=== PATIENT | female | born 1970 | race American Indian/Alaskan Native ===

== ENCOUNTER 2020-01-16 03:31 | Observation (INO) | payer OTHER ==
[2020-01-16 04:19] LABS: Mean Corpuscular HGB Conc 28 % (30-34); Red Blood Count 3.88 M/mm3 (3.65-5.03)
[2020-01-16 04:35] LABS: Hematocrit 20.6 % (30.3-42.9); Mean Corpuscular Volume 53 fl (79-97); Platelet Count 168 K/mm3 (140-440)
[2020-01-16 04:36] LABS: Hemoglobin 5.7 gm/dl (10.1-14.3)
[2020-01-16 04:40] LABS: Alanine Aminotransferase 19 units/L (7-56); Albumin 3.8 g/dL (3.9-5); BUN/Creatinine Ratio 12; Blood Urea Nitrogen 6 mg/dL (7-17); Calcium 8.5 mg/dL (8.4-10.2); Hemolysis Index 4
[2020-01-16] MEDS ORDERED: SODIUM CHLORIDE 0.9% 500 ML 500 ML IV ONE ×2 (04:54→14:06)
--- NOTE | 2020-01-16 04:54 | Event Note ---
ED Screening Note ED Screening Note: Chief complaint: "I guess my blood count is low." This is a 50-year-old female with previous history of anemia requiring 4 separate transfusions due to heavy menstruation. She presents with headache body aches. Hemoglobin 5. Medical screening exam performed and completed. Awaiting definitive treatment by my oncoming colleague. This initial assessment/diagnostic orders/clinical plan/treatment(s) is/are subject to change based on patients health status, clinical progression and re- assessment by fellow clinical providers in the ED. Further treatment and workup at subsequent clinical providers discretion. Patient/guardian urged not to elope from the ED as their condition may be serious if not clinically assessed and managed. Initial orders include: Type and cross 1 unit packed red blood cells.
--- NOTE | 2020-01-16 06:49 | Emergency Department Report ---
ED General Adult HPI - General Chief complaint: Headache Stated complaint: HEADACHE/BODY PAIN Time Seen by Provider: 01/16/20 06:11 Source: patient Mode of arrival: Ambulatory Limitations: No Limitations - History of Present Illness Initial comments: 50-year-old lady who has been previously transfused in 2016. She indicates that it was thought that her anemia was due to fibroids. However she is extremely poor historian. 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 She states that her periods recently have been "light" and not recent. He has had similar symptoms before with anemia. They include occasional headaches not currently present, dyspnea on exertion and generalized weakness. She has had this recently. They have been gradually progressive other than the headache which is not currently present. Patient has had no signs of active bleeding. She states that she has never had a colonoscopy. -: Gradual Location: head Radiation: non-radiation Quality: aching Consistency: now resolved Improves with: none Worsens with: none Associated Symptoms: shortness of breath (On exertion), weakness Treatments Prior to Arrival: none - Related Data Allergies Allergy/AdvReac Type Severity Reaction Status Date / Time No Known Allergies Allergy Verified 01/16/20 03:39 ED Review of Systems ROS: Stated complaint: HEADACHE/BODY PAIN Other details as noted in HPI Constitutional: weakness. denies: chills, fever Eyes: denies: eye pain, vision change ENT: denies: ear pain, throat pain Respiratory: SOB with exertion. denies: cough, shortness of breath (Not at rest), wheezing Cardiovascular: denies: chest pain, palpitations Endocrine: no symptoms reported Gastrointestinal: denies: abdominal pain, nausea, diarrhea Genitourinary: denies: urgency, dysuria, discharge Musculoskeletal: denies: back pain, arthralgia Skin: denies: rash, lesions Neurological: headache (Intermittently). denies: weakness, paresthesias Psychiatric: denies: anxiety, depression Hematological/Lymphatic: denies: easy bleeding, easy bruising ED Past Medical Hx - Past Medical History Previous Medical History?: Yes Additional medical history: anemia - Surgical History Past Surgical History?: Yes Hx Appendectomy: Yes - Social History Smoking Status: Never Smoker Substance Use Type: None ED Physical Exam - General Limitations: No Limitations General appearance: alert, in no apparent distress, obese - Head Head exam: Present: atraumatic, normocephalic - Eye Eye exam: Present: normal appearance, PERRL, EOMI, other (Pale conjunctiva). Absent: scleral icterus - ENT ENT exam: Present: mucous membranes moist - Neck Neck exam: Present: normal inspection. Absent: tenderness, meningismus - Respiratory Respiratory exam: Present: normal lung sounds bilaterally. Absent: respiratory distress - Cardiovascular Cardiovascular Exam: Present: regular rate, normal rhythm. Absent: systolic murmur, diastolic murmur, rubs, gallop - GI/Abdominal GI/Abdominal exam: Present: soft, normal bowel sounds. Absent: distended, tenderness, guarding, rebound - Extremities Exam Extremities exam: Present: normal inspection, other (Pale med bed) - Back Exam Back exam: Present: normal inspection - Neurological Exam Neurological exam: Present: alert, oriented X3, CN II-XII intact. Absent: motor sensory deficit - Psychiatric Psychiatric exam: Present: normal affect, normal mood - Skin Skin exam: Present: warm, dry, intact, normal color. Absent: rash ED Course Vital Signs 01/16/20 01/16/20 01/16/20 03:35 04:57 05:12 Temperature 99.2 F Pulse Rate 86 78 Respiratory 16 14 20 Rate Blood Pressure 136/65 Blood Pressure 136/58 [Left] O2 Sat by Pulse 99 99 99 Oximetry 01/16/20 01/16/20 07:57 08:15 Temperature 100.8 F H Pulse Rate 93 H 70 Respiratory 16 Rate Blood Pressure 133/64 Blood Pressure 142/74 [Left] O2 Sat by Pulse 99 Oximetry ED Medical Decision Making - Lab Data Result diagrams: 01/16/20 03:57 01/16/20 03:57 Laboratory Results - last 24 hr 01/16/20 01/16/20 01/16/20 03:57 03:57 05:10 WBC 2.7 L RBC 3.88 Hgb 5.7 L* Hct 20.6 L MCV 53 L MCH 15 L MCHC 28 L RDW 27.0 H Plt Count 168 Percent Retic PT INR APTT Sodium 135 L Potassium 4.0 Chloride 101.2 Carbon Dioxide 22 Anion Gap 16 BUN 6 L Creatinine 0.5 L Estimated GFR > 60 BUN/Creatinine Ratio 12 Glucose 103 H Calcium 8.5 Iron TIBC Total Bilirubin 0.40 AST 27 ALT 19 Alkaline Phosphatase 65 Troponin T NT-Pro-B Natriuret Pep Total Protein 7.6 Albumin 3.8 L Albumin/Globulin Ratio 1.0 Vitamin B12 Folate Blood Type O POSITIVE Antibody Screen Negative Crossmatch See Detail 01/16/20 01/16/20 01/16/20 06:45 06:45 06:45 WBC RBC Hgb Hct MCV MCH MCHC RDW Plt Count Percent Retic 1.45 PT INR APTT Sodium Potassium Chloride Carbon Dioxide Anion Gap BUN Creatinine Estimated GFR BUN/Creatinine Ratio Glucose Calcium Iron 12 L TIBC 367 Total Bilirubin AST ALT Alkaline Phosphatase Troponin T NT-Pro-B Natriuret Pep Total Protein Albumin Albumin/Globulin Ratio Vitamin B12 734.9 Folate Blood Type Antibody Screen Crossmatch 01/16/20 01/16/20 01/16/20 06:45 06:45 06:45 WBC RBC Hgb Hct MCV MCH MCHC RDW Plt Count Percent Retic PT 15.0 H INR 1.16 H APTT 37.2 H Sodium Potassium Chloride Carbon Dioxide Anion Gap BUN Creatinine Estimated GFR BUN/Creatinine Ratio Glucose Calcium Iron TIBC Total Bilirubin AST ALT Alkaline Phosphatase Troponin T < 0.010 NT-Pro-B Natriuret Pep 44.88 Total Protein Albumin Albumin/Globulin Ratio Vitamin B12 Folate > 20 Blood Type Antibody Screen Crossmatch - EKG Data -: EKG Interpreted by Ut EKG shows normal: sinus rhythm, axis (Left), intervals, QRS complexes, ST-T waves Rate: normal - EKG Data Interpretation: no acute changes - Radiology Data Radiology results: report reviewed, image reviewed Moderate cardiomegaly Critical care attestation.: If time is entered above; I have spent that time in minutes in the direct care of this critically ill patient, excluding procedure time. ED Disposition Clinical Impression: Symptomatic anemia, Folate deficiency, Iron deficiency, Cardiomegaly Disposition: OP ADMIT IP TO THIS HOSP Is pt being admited?: Yes Does the pt Need Aspirin: Yes Condition: Stable Referrals: PRIMARY CARE, [Primary Care Provider] - 3-5 Days Time of Disposition: 08:35
--- NOTE | 2020-01-16 07:05 | XRay Report ---
CHEST 1 VIEW INDICATION / CLINICAL INFORMATION: NAVDEEP. Dyspnea COMPARISON: None available. FINDINGS: SUPPORT DEVICES: None. HEART / MEDIASTINUM: Mild cardiomegaly. LUNGS / PLEURA: No significant pulmonary or pleural abnormality. No pneumothorax. ADDITIONAL FINDINGS: No significant additional findings. IMPRESSION: Moderate cardiomegaly. Signer Name: Guille Dodge MD Signed: 01/16/2020 7:01 AM Workstation Name: [id number]
[2020-01-16] MEDS ORDERED: ACETAMINOPHEN 500 MG TAB PO ONE (07:30)
[2020-01-16] MEDS ORDERED: SODIUM CHLORIDE 0.9% 500 ML 500 ML ONE ×2 (07:35→17:36)
[2020-01-16 07:38] LABS: Iron 12 ug/dL (37-170); Total Iron Binding Capacity 367 mcg/dL (250-450)
[2020-01-16 07:44] LABS: INR 1.16 (0.87-1.13)
[2020-01-16 07:45] LABS: Partial Thromboplastin Time 37.2 Sec. (24.2-36.6)
[2020-01-16 08:26] LABS: Mean Corpuscular HGB Conc 28 % (30-34); Red Blood Count 3.47 M/mm3 (3.65-5.03)
[2020-01-16 08:33] LABS: Hematocrit 18.7 % (30.3-42.9); Hemoglobin 5.3 gm/dl (10.1-14.3); Mean Corpuscular Volume 54 fl (79-97); Red Cell Distribution Width 25.3 % (13.2-15.2)
[2020-01-16 08:36] LABS: Bilirubin,Urine NEG (Negative); Blood,Urine NEG (Negative); Color,Urine Yellow (Yellow); HCG Qualitative,Urine Negative (Negative); Mucus,Urine FEW /HPF; Protein,Urine <15 mg/dL mg/dL (Negative); Urobilinogen,Urine < 2.0 mg/dL (<2.0); WBC,Urine < 1.0 /HPF (0.0-6.0)
--- NOTE | 2020-01-16 08:36 | History and Physical Report ---
History of Present Illness Date of examination: 01/16/20 Chief complaint: generalized weakness History of present illness: 50-year-old lady who has been previously transfused in 2016. She indicates that it was thought that her anemia was due to fibroids. However she is extremely poor historian. 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 She states that her periods recently have been "light" and not recent. He has had similar symptoms before with anemia. They include occasional headaches not currently present, dyspnea on exertion and generalized weakness. She has had this recently. They have been gradually progressive other than the headache which is not currently present. Patient has had no signs of active bleeding. She states that she has never had a colonoscopy. Medications and Allergies Allergies Allergy/AdvReac Type Severity Reaction Status Date / Time No Known Allergies Allergy Verified 01/16/20 03:39 Exam - Constitutional Vitals: Temp Pulse Resp BP Pulse Ox 99.5 F 70 20 139/64 99 01/16/20 08:30 01/16/20 08:30 01/16/20 08:30 01/16/20 08:30 01/16/20 08:30 HEART Score - HEART Score Troponin: Troponin T < 0.010 ng/mL (0.00-0.029) 01/16/20 06:45 Results - Labs CBC & Chem 7: 01/16/20 22:52 01/16/20 03:57 Labs: Abnormal lab results 01/16/20 01/16/20 01/16/20 Range/Units 03:57 03:57 05:10 WBC 2.7 L (4.5-11.0) K/mm3 RBC (3.65-5.03) M/mm3 Hgb 5.7 L* (10.1-14.3) gm/dl Hct 20.6 L (30.3-42.9) % MCV 53 L (79-97) fl MCH 15 L (28-32) pg MCHC 28 L (30-34) % RDW 27.0 H (13.2-15.2) % PT (12.2-14.9) Sec. INR (0.87-1.13) APTT (24.2-36.6) Sec. Sodium 135 L (137-145) mmol/L BUN 6 L (7-17) mg/dL Creatinine 0.5 L (0.7-1.2) mg/dL Glucose 103 H (65-100) mg/dL Iron (37-170) ug/dL Albumin 3.8 L (3.9-5) g/dL Crossmatch See Detail 01/16/20 01/16/20 01/16/20 Range/Units 06:15 06:45 06:45 WBC 2.6 L (4.5-11.0) K/mm3 RBC 3.47 L (3.65-5.03) M/mm3 Hgb 5.3 L* (10.1-14.3) gm/dl Hct 18.7 L* (30.3-42.9) % MCV 54 L (79-97) fl MCH 15 L (28-32) pg MCHC 28 L (30-34) % RDW 25.3 H (13.2-15.2) % PT 15.0 H (12.2-14.9) Sec. INR 1.16 H (0.87-1.13) APTT 37.2 H (24.2-36.6) Sec. Sodium (137-145) mmol/L BUN (7-17) mg/dL Creatinine (0.7-1.2) mg/dL Glucose (65-100) mg/dL Iron 12 L (37-170) ug/dL Albumin (3.9-5) g/dL Crossmatch Assessment and Plan Severe anemia - hb 5.3 Menorrhagia Fibroid uterus Obesity
[2020-01-16 11:58] LABS: Band Neutrophils # (Manual) 0.1 K/mm3; Eosinophils % (Manual) 0 % (0.0-4.3); Total Cells Counted 100
[2020-01-16 11:59] LABS: Anisocytosis 1+; Hypochromasia 3+
[2020-01-16 12:00] LABS: Platelet Estimate Consistent w Auto
[2020-01-16 12:01] LABS: Platelet Count 152 K/mm3 (140-440)
[2020-01-16] MEDS ORDERED: MORPHINE 2 MG/1 ML INJ ONE (15:12)
[2020-01-16] MEDS ORDERED: SODIUM CHLORIDE 0.9% 1000 ML 1,000 ML ONE (15:12)
[2020-01-16] MEDS ORDERED: PANTOPRAZOLE 20 MG TAB PO ONE (15:13)
[2020-01-16] MEDS ORDERED: ASPIRIN 81 MG TAB CHEW ONE (15:13)
[2020-01-16] MEDS: ASPIRIN 81 MG TAB CHEW PO ONE ×2 (15:15→15:16)
[2020-01-16] MEDS: SODIUM CHLORIDE 0.9% 1000 ML 1,000 ML IV SCH ×2 (15:15→23:49)
[2020-01-16] MEDS: MORPHINE 2 MG/1 ML INJ IV PRN ×2 (15:16→21:20)
[2020-01-16 15:32] LABS: Hematocrit 25.2 % (30.3-42.9)
[2020-01-16] MEDS ORDERED: ACETAMINOPHEN 325 MG TAB PO PRN (23:13)
[2020-01-16 23:39] LABS: Hematocrit 24.6 % (30.3-42.9); Hemoglobin 7.1 gm/dl (10.1-14.3)
[2020-01-16] MEDS: PANTOPRAZOLE 40 MG TAB PO SCH (23:50)
[2020-01-17] MEDS: SODIUM CHLORIDE 0.9% 1000 ML 1,000 ML IV SCH (09:55)
[2020-01-17] MEDS: PANTOPRAZOLE 40 MG TAB PO SCH (09:56)
[2020-01-17] MEDS: MORPHINE 2 MG/1 ML INJ IV PRN (09:56)
--- NOTE | 2020-01-17 13:02 | Discharge Summary ---
Providers - Providers Date of Admission: 01/16/20 08:32 Date of discharge: 01/17/20 Attending physician: UYEN LADD Primary care physician: RAJI BAIG MD Hospitalization Condition: Stable Disposition: DC-01 TO HOME OR SELFCARE Time spent for discharge: 34 minutes Core Measure Documentation - Palliative Care Palliative Care/ Comfort Measures: Not Applicable - Core Measures Any of the following diagnoses?: none Exam - Constitutional Vitals: Temp Pulse Resp BP Pulse Ox 99.8 F H 62 18 125/68 98 01/17/20 08:44 01/17/20 08:44 01/17/20 08:44 01/17/20 08:44 01/17/20 08:44 General appearance: Present: no acute distress, well-nourished - EENT Eyes: Present: PERRL ENT: hearing intact, clear oral mucosa - Neck Neck: Present: supple, normal ROM - Respiratory Respiratory effort: normal Respiratory: bilateral: CTA - Cardiovascular Heart Sounds: Present: S1 & S2. Absent: rub, click - Extremities Extremities: pulses symmetrical, No edema Peripheral Pulses: within normal limits - Abdominal General gastrointestinal: Present: soft, non-tender, non-distended, normal bowel sounds - Integumentary Integumentary: Present: clear, warm, dry - Musculoskeletal Musculoskeletal: gait normal, strength equal bilaterally - Psychiatric Psychiatric: appropriate mood/affect, intact judgment & insight - Neurologic Neurologic: CNII-XII intact, moves all extremities Plan Activity: advance as tolerated Weight Bearing Status: Weight Bear as Tolerated Diet: low fat, low salt Additional Instructions: 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
[2020-01-17 13:39] VITALS: BP 130/62
[2020-01-17] MEDS ORDERED: FERROUS SULFATE 325 MG TAB PO SCH (22:00)
== END 2020-01-17 16:27 | disposition home or self-care (01) ==
LOC: ED 03:31 → 4A 08:32
PROVIDERS: ADMIT Internal Medicine; ATTEND Internal Medicine
DX: D64.9 Anemia, unspecified (principal); N92.0 Excessive and frequent menstruation with regular cycle; I51.7 Cardiomegaly; D25.9 Leiomyoma of uterus, unspecified; E66.9 Obesity, unspecified; E61.1 Iron deficiency; E53.8 Deficiency of other specified B group vitamins; Z68.31 Body mass index [BMI] 31.0-31.9, adult
CPT/HCPCS: 36415; 36430; 71045; 80053; 81001; 81025; 82607; 82747; 83550; 83880; 84484; 85007; 85014; 85018; 85025; 85027; 85045; 85610; 85730; 86850; 86900; 86901; 86920; 93005; 96374; 96376; 99285; G0378; J2270; J7030; J7040; P9016